=== PATIENT | male | born 1965 | race Native Hawaiian/Other Pacific Islander ===

== ENCOUNTER 2022-02-14 11:35 | Outpatient (CLI) | payer OTHER ==
[2022-02-14 12:49] LABS: PLATELET COUNT 248 K/uL (142-355)
[2022-02-14 12:59] LABS: POTASSIUM 4.2 mmol/L (3.6-5.2)
== END 2022-02-14 18:50 | disposition home or self-care (01) ==
LOC: RAD 11:35
PROVIDERS: ATTEND Internal Medicine
DX: M47.22 Other spondylosis with radiculopathy, cervical region (principal); M51.16 Intervertebral disc disorders with radiculopathy, lumbar region
CPT/HCPCS: 36415; 80053; 81002; 81374; 85027; 85652; 86038; 86140; 86431